=== PATIENT | female | born 1955 | race Caucasian/White ===

== ENCOUNTER 2021-04-18 22:02 | Emergency (ER) | payer MEDICARE, OTHER ==
--- NOTE | 2021-04-18 23:18 | EDM.PDOC ---
ED HPI GENERAL MEDICAL PROBLEM - General Chief Complaint: ENT Problem Stated Complaint: BLOODY NOSE Time Seen by Provider: 04/18/21 22:50 Source of Information: Reports: Patient History Limitations: Reports: No Limitations - History of Present Illness INITIAL COMMENTS - FREE TEXT/NARRATIVE: 65-year-old female with a right-sided epistaxis for the last 2 hours. She has her nose packed and it seems to be controlled now. 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 Pain Score (Numeric/FACES): 0 - Related Data Allergies Allergy/AdvReac Type Severity Reaction Status Date / Time Sulfa (Sulfonamide Allergy Rash Verified 04/18/21 23:06 Antibiotics) Home Meds: Home Meds Citalopram [Citalopram HBr] 20 mg PO DAILY 04/18/21 [History] Levothyroxine 75 mcg PO ACBREAKFAST 04/18/21 [History] traZODone 100 mg PO DAILY 04/18/21 [History] Past Medical History HEENT History: Reports: Impaired Vision Musculoskeletal History: Reports: Fracture Other Musculoskeletal History: ankle,thumb Endocrine/Metabolic History: Reports: Hypothyroidism - Infectious Disease History Infectious Disease History: Reports: Chicken Pox - Past Surgical History HEENT Surgical History: Reports: Cataract Surgery GI Surgical History: Reports: Appendectomy, Cholecystectomy Endocrine Surgical History: Reports: Thyroid Biopsy Social & Family History - Tobacco Use Tobacco Use Status *Q: Never Tobacco User Second Hand Smoke Exposure: No - Caffeine Use Caffeine Use: Reports: None - Alcohol Use Days Per Week of Alcohol Use: 2 Number of Drinks Per Day: 1 Total Drinks Per Week: 2 - Recreational Drug Use Recreational Drug Use: No ED ROS ENT - Review of Systems Review Of Systems: See Below Constitutional: Denies: Fever, Chills Respiratory: Denies: Shortness of Breath Cardiovascular: Denies: Chest Pain GI/Abdominal: Denies: Nausea, Vomiting Neurological: Denies: Headache Psychiatric: Reports: No Symptoms ED EXAM, ENT - Physical Exam Exam: See Below Exam Limited By: No Limitations General Appearance: Alert, No Apparent Distress Nose: Other (Some fresh blood is seen in the high right nares, the left side is clear. No active bleeding) Mouth/Throat: Normal Inspection Head: Atraumatic Respiratory/Chest: No Respiratory Distress Course - Vital Signs Last Recorded V/S: Last Vital Signs Temp 97.2 F 04/18/21 23:13 Pulse 67 04/18/21 23:13 Resp 16 04/18/21 23:13 BP 121/52 L 04/18/21 23:13 Pulse Ox 96 04/18/21 23:13 - Re-Assessments/Exams Free Text/Narrative Re-Assessment/Exam: 04/19/21 02:43 Patient was observed for half hour without any additional bleeding. She declined any further treatment but will return if bleeding recurs and is persistent. Departure - Departure Time of Disposition: 23:25 Disposition: Home, Self-Care 01 Clinical Impression: Right-sided epistaxis - Discharge Information Instructions: Nosebleed, [id number] Referrals: PCP,None [Primary Care Provider] - Forms: ED Department Discharge Care Plan Goals: Apply external pressure to the nose and leaning head forward if bleeding recurs, and return to the emergency room at any time if bleeding is persistent and you need further care. Sepsis Event Note (ED) - Evaluation Sepsis Screening Result: No Definite Risk - Focused Exam Vital Signs: Vital Signs Temp Pulse Resp BP Pulse Ox 04/18/21 23:13 97.2 F 67 16 121/52 L 96 04/18/21 22:28 97.2 F 67 16 121/52 L 96
== END 2021-04-18 23:25 | disposition home or self-care (01) ==
LOC: JP.ED 22:02
DX: R04.0 Epistaxis (principal); E03.9 Hypothyroidism, unspecified; Z79.899 Other long term (current) drug therapy; Z88.2 Allergy status to sulfonamides
CPT/HCPCS: 99282; 99283